=== PATIENT | male | born 2005 | race Caucasian/White ===

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

== ENCOUNTER 2024-01-09 21:23 | Emergency (ER) | payer MEDICAID, SELFPAY ==
[2024-01-09 21:26] VITALS: BP 163/91; PULSE 78; RESP 17; TEMP 36.6; O2SAT 98; BMI 41.8
--- NOTE | 2024-01-09 21:29 | XRR_ITS ---
PROCEDURE INFORMATION: Exam: XR Left Hand Exam date and time: 01/09/2024 9:50 PM Age: 18 years old Clinical indication: Left; Patient HX: Lt hand pain/swelling after punching wall TECHNIQUE: Imaging protocol: Radiologic exam of the left hand. Views: 3 or more views. COMPARISON: CR XR forearm LT 2V [id number] 09/13/2017 10:12 PM FINDINGS: Bones/joints: Mildly comminuted fracture of the 5th distal metacarpal shaft, with mild palmar and medial angulation of the distal fracture fragments. No discrete intra-articular extension. The 5th metacarpophalangeal joint appears intact. The remainder of the osseous structures appear intact. Soft tissues: Soft tissue swelling along the dorsal lateral hand. XR/XR hand LT min 3V* [id number] IMPRESSION: Mildly comminuted and angulated fracture of the distal 5th metacarpal shaft.
== END 2024-01-10 02:30 | disposition left against medical advice (07) ==
LOC: ER 21:27
PROVIDERS: Emergency Provider Family Medicine; PCP Registered Nurse
DX: Z53.21 Procedure and treatment not carried out due to patient leaving prior to being seen by health care provider (principal)
CPT/HCPCS: 73130; 99283

== ENCOUNTER 2024-10-04 09:32 | Emergency (ER) | payer MEDICAID, SELFPAY ==
--- NOTE | 2024-10-04 09:36 | XRR_ITS ---
PROCEDURE INFORMATION: Exam: XR Chest Exam date and time: 10/04/2024 9:38 AM Age: 19 years old Clinical indication: Cough and dyspnea; Additional info: Dyspnea/cough TECHNIQUE: Imaging protocol: Radiologic exam of the chest. Views: 1 view. COMPARISON: CT chest pkl w/*[id number] 01/01/2018 11:34 AM FINDINGS: Lungs: Unremarkable. No consolidation. Pleural spaces: Unremarkable. No pleural effusion. No pneumothorax. Heart/Mediastinum: Unremarkable. No cardiomegaly. Bones/joints: Unremarkable. ORIF the right clavicle. XR/XR chest 1V portable [id number] IMPRESSION: No acute findings.
[2024-10-04 09:37] VITALS: BP 153/77; PULSE 84; RESP 16; TEMP 36.9; O2SAT 96; BMI 33.4
--- NOTE | 2024-10-04 09:43 | W.ED.HA ---
HPI - Headache General: Chief Complaint: Headache Stated Complaint: Headache, n/v/f Time Seen by Provider: 10/04/24 09:35 History of Present Illness: 19-year-old male presents to the emergency room with complaint of headache.. Patient has had migraine headaches in the past this was just a bit more intense no recent trauma or injury. He is tried [id number] medications at home with no significant relief. He has had photophobia and otophobia nausea and vomiting with this he says its actually a little bit better now than it was overnight. He is not on any long-term medications to manage this. Associated symptoms: Deny chest pain, fever(s) or rash Related Data Previous Rx's ?Medication ?Instructions ?Recorded sulfamethoxazole 800 1 tab PO BID 7 days #14 tabs 07/13/23 mg-trimethoprim 160 mg tablet (Bactrim DS) promethazine 25 mg tablet 25 mg PO Q6H PRN nausea and 10/04/24 vomiting #20 tabs Allergies Allergy/AdvReac Type Severity Reaction Status Date / Time No Known Allergies Allergy Verified 01/09/24 21:29 Review of Systems Const: Denies: fever(s) or chills Card: Denies: chest pain Resp: Denies: dyspnea GI: Denies: abdominal pain : Denies: dysuria, urinary frequency or urinary urgency Musc: Denies: neck pain or back pain Skin/Breast: Denies: rash Neuro: Reports: headache(s) Physical Exam Const: GENERAL APPEARANCE: cooperative ORIENTATION/CONSCIOUSNESS: Yes awake, Yes oriented to person, Yes oriented to place and Yes oriented to time HENMT: COMMON NORMALS: normocephalic, atraumatic and hearing grossly normal bilaterally HEAD & SCALP: normocephalic and atraumatic Resp: COMMON NORMALS: normal respiratory effort, No retractions, No use of accessory muscles and clear to auscultation bilaterally AUSCULTATION: clear to auscultation bilaterally Cardio: COMMON NORMALS: regular rate, regular rhythm and No murmurs present (Cardio) RATE: regular rate RHYTHM: regular rhythm GI: COMMON NORMALS: Soft to palpation and No hepatosplenomegaly present AUSCULTATION: Yes normoactive bowel sounds PALPATION: Yes Soft to palpation, No Tenderness to palpation present (GI), No Guarding due to palpation present (GI) and Yes No hepatosplenomegaly present Extremity: COMMON NORMALS: normal to inspection, capillary refill normal, no clubbing, cyanosis or edema, no calf tenderness and no pedal edema Neuro: SENSORIUM/ORIENTATION: Yes oriented to person, Yes oriented to place and Yes oriented to time Skin: COMMON NORMALS: no rashes or lesions noted GENERAL SKIN EXAM: no rashes or lesions noted Course Vital Signs: Vital signs: Vital Signs Temperature 98.4 F 10/04/24 09:37 Pulse Rate 62 10/04/24 12:45 Respiratory Rate 16 10/04/24 09:37 Blood Pressure 124/71 10/04/24 12:45 Pulse Oximetry 96 10/04/24 12:45 Oxygen Delivery Me thod Room Air 10/04/24 11:30 MDM - Headache Medical Decision Making Improved after medications. Will discharge patient home can use promethazine as needed if has recurrent headache we will also have him use Tylenol and ibuprofen. Encouraged him to follow-up with his primary care doctor for long-term management of his migraine issues. Medical Records I reviewed the patient's medical records. Lab Data I reviewed the patient's lab results. 10/04/24 10:45 10/04/24 10:45 Radiology Impressions Chest X-Ray 10/04/24 09:36 IMPRESSION: No acute findings. Laboratory Results WBC 17.47 10^3/uL (4.5-13.0) H 10/04/24 10:45 RBC 5.78 10^6/uL (3.85-5.65) H 10/04/24 10:45 Hgb 15.80 g/dL (13.2-15.6) H 10/04/24 10:45 Hct 46.4 % (37-53) 10/04/24 10:45 MCV 80.3 fl (82-101) L 10/04/24 10:45 MCH 27.3 pg (27-33) 10/04/24 10:45 MCHC 34.1 g/dL (30-55) 10/04/24 10:45 RDW 11.9 % (12.1-15.1) L 10/04/24 10:45 Plt Count 251 10^3/cmm (157-399) 10/04/24 10:45 MPV 9.9 fL (7.4-10.4) 10/04/24 10:45 Neut % (Auto) 84.9 % 10/04/24 10:45 Lymph % (Auto) 7.6 % 10/04/24 10:45 [place] % (Auto) 6.8 % 10/04/24 10:45 Eos % (Auto) 0.1 % 10/04/24 10:45 Baso % (Auto) 0.3 % 10/04/24 10:45 Neut # (Auto) 14.85 10^3/uL (1.8-8.0) H 10/04/24 10:45 Lymph # (Auto) 1.3 10^3/uL (1.5-6.5) L 10/04/24 10:45 [place] # (Auto) 1.2 10^3/uL (0.2-0.9) H 10/04/24 10:45 Eos # (Auto) 0.0 10^3/uL (0.0-0.8) 10/04/24 10:45 Baso # (Auto) 0.1 10^3/uL (0.0-0.1) 10/04/24 10:45 Nucleated RBC % (auto) 0 % 10/04/24 10:45 Nucleated RBCs # 0.0 /100WBC 10/04/24 10:45 Sodium 136 mmol/L (136-145) 10/04/24 10:45 Potassium 4.2 mmol/L (3.5-5.1) 10/04/24 10:45 Chloride 99 mmol/L (98-107) 10/04/24 10:45 Carbon Dioxide 24 mmol/L (22-29) 10/04/24 10:45 Anion Gap 17.2 (5-19) 10/04/24 10:45 BUN 12 mg/dL (6-20) 10/04/24 10:45 Creatinine 0.9 mg/dL (0.7-1.2) 10/04/24 10:45 GFR Calculation 107.6 mL/min (90-130) 10/04/24 10:45 Glucose 102 mg/dL (65-115) 10/04/24 10:45 Calculated Osmolality 282 mOsm/kg (285-295) L 10/04/24 10:45 Calcium 9.7 mg/dL (8.5-10.5) 10/04/24 10:45 Total Bilirubin 0.5 mg/dL (0.15-1.2) 10/04/24 10:45 AST 17 U/L (0-40) 10/04/24 10:45 ALT 20 U/L (0-41) 10/04/24 10:45 Alkaline Phosphatase 170 U/L (40-130) H 10/04/24 10:45 Total Protein 7.6 g/dL (6.6-8.7) 10/04/24 10:45 Albumin 4.4 g/dL (3.5-5.2) 10/04/24 10:45 Globulin 3.2 g/dL (1.3-4.6) 10/04/24 10:45 All radiology interpretation(s) finalized by discharge Discharge Plan Discharge Patient Disposition: Home Clinical Impression: Migraine Condition: Stable Prescriptions: New promethazine 25 mg tablet 25 mg PO Q6H PRN (Reason: nausea and vomiting) Qty: 20 0RF No Action sulfamethoxazole-trimethoprim [Bactrim DS] 800-160 mg tablet 1 tab PO BID 7 Days Qty: 14 0RF Discharge Orders: Discharge ED (Routine); Ordered 10/04/24 Ordered By: Roshan Menendez Referrals: Mikaela Garcia FNP [Primary Care Provider, Nurse Practitioner] Discharge Diet: Usual diet Discharge Activity: Increase activity as tolerated Patient Instructions: Opioid Safety, Pain Management Activity Restrictions/Additional Instructions: Thank you for choosing [facility] for your healthcare needs today. It is very important that you follow up as instructed or that you return to the Emergency Department should you have concerns or if your condition changes or worsens in any way. You were seen emergency room for headache improved with medications given. Recommend you rest the remainder of today. You can use the promethazine along with Tylenol or ibuprofen if you have recurrent headaches. You should follow-up with your primary care provider regarding long-term management of your headaches. Print Language: Italian Coding Level of Care Code ED General Operator for Micheal Lazo
[2024-10-04] MEDS: prochlorperazine 10 mg/2 mL Inj IVP (10:34)
[2024-10-04] MEDS: ketorolac 30 mg/mL INJ IVP (10:36)
[2024-10-04] MEDS: diphenhydrAMINE 50 mg/mL SDV 1mL IVP (10:36)
[2024-10-04] MEDS: valproic acid inj 500 MG in sodium chloride 0.9% (plus) 50 ML 55 MG IV (10:39)
[2024-10-04 10:40] VITALS: BP 122/72; PULSE 106; O2SAT 94
[2024-10-04 10:58] LABS: Basophils # 0.1 10^3/uL (0.0-0.1); Basophils % 0.3 %; Eosinophils % 0.1 %; Hematocrit 46.4 % (37-53); Lymphocytes # 1.3 10^3/uL (1.5-6.5); Lymphocytes % 7.6 %; Mean Corpuscular HGB Conc 34.1 g/dL (30-55); Mean Corpuscular Hemoglobin 27.3 pg (27-33); Mean Corpuscular Volume 80.3 fl (82-101); Mean Platelet Volume 9.9 fL (7.4-10.4); Monocytes # 1.2 10^3/uL (0.2-0.9); Monocytes % 6.8 %; Neutrophils # 14.85 10^3/uL (1.8-8.0); Neutrophils % 84.9 %; Nucleated Red Blood Cells % 0 %; Platelet Count 251 10^3/cmm (157-399); Red Blood Count 5.78 10^6/uL (3.85-5.65); Red Cell Distribution Width 11.9 % (12.1-15.1); White Blood Count 17.47 10^3/uL (4.5-13.0)
--- NOTE | 2024-10-04 11:03 | PC.NURSE ---
PT FAMILY CAME UP TO THE NURSE'S STATION AND ASKED TO BE LET OUT. THIS NURSE WENT TO LET FAMILY OUT, WHEN SHE NOTICED THAT THE PT WAS WITH FAMILY AT THE DOOR. THIS NURSE ASKED WHAT PT WAS DOING. PT STATES HE WANTED TO LEAVE. THIS NURSE ASKED IF PT WAS UP FOR DISCHARGE AND PT STATED YES. THIS NURSE KNEW THAT PT WAS NOT UP FOR DISCHARGE AT THIS TIME AND EDUCATED PT ON THAT. PT STILL STATED HE WANTED TO LEAVE. THIS NURSE INFORMED PT AND FAMILY THAT IF HE LEFT, HE WOULD BE LEAVING AGAINST MEDICAL ADVICE. PT DECIDED TO GO BACK TO ROOM. THIS NURSE NOTICED PT HAD RIPPED IV OUT. THIS NURSE ASKED WHY PT WANTED TO LEAVE. PT STATED HIS HEADACHE WENT AWAY AND HE STARTED TO FEEL WEIRD. THIS NURSE INFORMED PT THAT HE DID NOT HAVE TO HAVE THE VALPROIC ACID IF HE DID NOT WANT. PT VERBALIZED THAT HE DID NOT WANT THE MEDS BUT WOULD STAY UNITL DISCHARGED. PHYSICIAN NOTIFIED.
[2024-10-04 11:16] LABS: Alanine Aminotransferase 20 U/L (0-41); Albumin Level 4.4 g/dL (3.5-5.2); Alkaline Phosphatase 170 U/L (40-130); Anion Gap 17.2 (5-19); Aspartate Amino Transferase 17 U/L (0-40); Blood Urea Nitrogen 12 mg/dL (6-20); Calcium 9.7 mg/dL (8.5-10.5); Carbon Dioxide 24 mmol/L (22-29); Chloride 99 mmol/L (98-107); Creatinine Clr Calc Pharmacy 149.9185; Globulin 3.2 g/dL (1.3-4.6); Glomerular Filtration Rate 107.6 mL/min (90-130); Glucose 102 mg/dL (65-115); Osmolality Calculated 282 mOsm/kg (285-295); Potassium 4.2 mmol/L (3.5-5.1); Sodium 136 mmol/L (136-145); Total Bilirubin 0.5 mg/dL (0.15-1.2); Total Protein 7.6 g/dL (6.6-8.7)
[2024-10-04 11:30] VITALS: BP 136/69; PULSE 61; O2SAT 94
[2024-10-04 12:45] VITALS: BP 124/71; PULSE 62; O2SAT 96
== END 2024-10-04 12:47 | disposition home or self-care (01) ==
PROVIDERS: Emergency Provider Family Medicine; PCP Registered Nurse
DX: G43.909 Migraine, unspecified, not intractable, without status migrainosus (principal)
CPT/HCPCS: 36415; 71045; 80053; 85025; 96365; 96375; 99285; J0780; J1200; J1885; J3490

== ENCOUNTER 2024-12-13 19:18 | Emergency (ER) | payer MEDICAID, SELFPAY ==
--- OUTSIDE RECORDS SUMMARY | 2021-04-26 06:00 | XMS_ITS | Continuity of Care Document ---
Author Organization [facility] Address [address] [place] [address] Phone Care Team Providers Care Forming Press Operator Name Role Phone Unavailable Unavailable Unavailable Medications Medication Instructions Dosage Effective Dates (start - stop) Status Comments fluoxetine 10 mg tablet - Ac tive propranolol 20 mg tablet - A ctive methocarbamol 750 mg tablet - Active naproxen 500 mg tablet - Act christofer Procedures Procedure Date INTERMEDIATE OUTPT CONSULT ECG GLOBAL ECHO, TT W/SPECTRAL AND COLOR DOPPLER De ECHO, TT W/SPECTRAL AND COLOR DOPPLER De Advance Directives Directive Yes / No Effective Date File Name Resuscitation Not Answered N/A N/A Life Support Not Answered N/A N/A Intubation Not Answered N/A N/A Antibiotics Not Answered N/A N/A IV Fluid Support Not Answered N/A N/A Tube Feed Not Answered N/A N/A Other Directive N/A N/A WARNING:The information contained in this section is historical and is provided for information only and does not constitute a legal document or any assurance that the information is still accurate. Please verify the information with the hopkins of the legal document before using it for clinical purposes. Encounters Encounter Description Practice Location Reason(s) For Visit Diagnoses Date Provider Providers Copied on Encounter INTERMEDIATE OUTPT CONSULT [facility], [address], [place], [address], [place] tel:[phone] [employer] [place] [facility] PalpitationsBe nign Essential HypertensionOb esity (morbid)BMI Pediatric, 95% and above for age No Information Referring Provider: JADEN WANG, [address] [place], [address]. tel:[phone] Family History Family Member Type Diagnosis Age At Onset No Information Payers Payer name Insurance type Covered constitution party ID Authoriza tidawit(s) [facility] [id number] Social History Type Description Quantity Date Captured Comments Alcohol Use Details Unknown Caffeine Use Details Unknown Tobacco Use Status No Information Smoking Status No Information Sex Male Vital Signs Date / Time: Height Weight BMI Pulse Rate Blood Pressure Temperature Respiratory Rate Body Surface Area Head Circumference BMI percentile Pulse Ox Inhaled Ox 12:27 PM 69.00 in 108.862 kg (240.00 lbs) 35.5 0 kg/m eter (2) 24 /min 2.30 meter(2) 99 Chief Complaint And Reason For Visit No Information History Of Present Illness Encounter Date Complaint History Of Prese nt Illness No Information Instructions Date Instruction Additional Infor mation No Information Assessments Type Assessment Date No Information
[2024-12-13 19:22] VITALS: PULSE 76; RESP 16; O2SAT 95
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
[2024-12-13 19:25] VITALS: BP 136/76
--- NOTE | 2024-12-13 19:55 | XRR_ITS ---
PROCEDURE INFORMATION: Exam: XR Abdomen Exam date and time: 12/13/2024 8:09 PM Age: 19 years old Clinical indication: Constipation TECHNIQUE: Imaging protocol: Radiologic exam of the abdomen. Views: Frontal supine view of the abdomen. 1 View. COMPARISON: CR XR chest 1V portable [id number] 10/04/2024 9:38 AM FINDINGS: Gastrointestinal tract: Nonobstructive bowel gas pattern. Moderate retained fecal debris noted throughout the entire colon with desiccated appearing feces throughout. No abnormal calcifications. Bones/joints: Unremarkable. XR/XR abdomen 1V* [id number] IMPRESSION: Exam confirms appearance of constipation. No findings of bowel obstruction
--- NOTE | 2024-12-13 20:58 | W.ED.ABDPA2 ---
HPI - Abdominal Pain General: Chief Complaint: Abdominal Pain Stated Complaint: Constipation, lax is not working Time Seen by Provider: 12/13/24 20:56 History of Present Illness: Patient is a 19-year-old male with complaints of constipation x 3 days. This has occurred before and patient was given MiraLAX, and enema which resolved the issue. He was then sent home with MiraLAX. He was lost to follow-up. He no longer has primary care physician. Associated Symptoms: Reports change in stool character and nausea; Denies chills, fever(s) and vomiting Related Data Previous Rx's ?Medication ?Instructions ?Recorded sulfamethoxazole 800 1 tab PO BID 7 days #14 tabs 07/13/23 mg-trimethoprim 160 mg tablet (Bactrim DS) promethazine 25 mg tablet 25 mg PO Q6H PRN nausea and 10/04/24 vomiting #20 tabs lactulose 20 gram oral packet 20 g PO DAILY PRN constipation #30 12/13/24 ea Allergies Allergy/AdvReac Type Severity Reaction Status Date / Time No Known Allergies Allergy Verified 01/09/24 21:29 Review of Systems General: Reports: 10 or more systems reviewed and unremarkable except in HPI and below Const: Denies: fever(s) or chills Eyes: Denies: change in vision or blurry vision ENMT: Denies: throat pain or mouth pain Card: Denies: chest pain or palpitations Resp: Denies: dyspnea or non-productive cough GI: Reports: abdominal pain, nausea, pain on defecation and change in stool character; Denies: vomiting : Denies: flank pain or difficulty urinating Musc: Denies: neck pain or back pain Skin/Breast: Denies: rash or pruritus Neuro: Denies: headache(s) or numbness in extremities Psych: Denies: anxiety or depression Physical Exam Const: COMMON NORMALS: no acute distress, average body habitus and patient oriented x3 HENMT: COMMON NORMALS: normocephalic and atraumatic HEAD & SCALP: normocephalic and atraumatic Lymph: LYMPHATIC: no lymphadenopathy noted Chest: COMMONS NORMALS: normal inspection of the chest and normal palpation of entire chest wall Resp: COMMON NORMALS: normal respiratory effort and clear to auscultation bilaterally AUSCULTATION: clear to auscultation bilaterally Cardio: COMMON NORMALS: regular rate and regular rhythm RATE: regular rate RHYTHM: regular rhythm GI: INSPECTION: Yes normal to inspection and No Fluid wave present AUSCULTATION: Yes Hypoactive bowel sounds present PALPATION: Yes Firmness to palpation present (GI), Yes Tenderness to palpation present (GI) (mild defuse) and No Guarding due to palpation present (GI) PERCUSSION: dullness to percussion and no fluid wave : COMMON NORMALS: Yes no CVA tenderness BLADDER/KIDNEY EXAM: Yes no CVA tenderness Back/Pelvis: COMMON NORMALS: no CVA tenderness Extremity: COMMON NORMALS: normal to inspection, full ROM and capillary refill normal Neuro: COMMON NORMALS: patient oriented x3 Course Vital Signs: Vital signs: Vital Signs Pulse Rate 48 L 12/13/24 22:33 Respiratory Rate 16 12/13/24 19:22 Blood Pressure 132/7 12/13/24 22:33 Pulse Oximetry 100 12/13/24 22:33 Oxygen Delivery Me thod Room Air 12/13/24 19:22 MDM - Abdominal Pain Medical Decision Making Patient is a 19-year-old male with abdominal pain and constipation, inability to have BM x 3 days. He has tried MiraLAX daily. He has bloating, and pain. X-ray is consistent with constipation. Will give lactulose x 1, and enema, and sent home with lactulose. Discussed with patient to follow-up with primary care. Case management order for referral. Lab Data Labs/Radiology: Radiology Impressions Abdomen X-Ray 12/13/24 19:55 IMPRESSION: Exam confirms appearance of constipation. No findings of bowel obstruction XR interpretation done by ED provider, pending radiology final review ED provider radiology interpretation(s): Large stool burden with nonspecific gas pattern Discharge Plan Discharge Patient Disposition: Home Clinical Impression: Constipation Qualifiers: Constipation type: slow transit constipation Qualified Code(s): K59.01 - Slow transit constipation Condition: Stable Prescriptions: New lactulose 20 gram packet 20 g PO DAILY PRN (Reason: constipation) Qty: 30 0RF No Action sulfamethoxazole-trimethoprim [Bactrim DS] 800-160 mg tablet 1 tab PO BID 7 Days Qty: 14 0RF promethazine 25 mg tablet 25 mg PO Q6H PRN (Reason: nausea and vomiting) Qty: 20 0RF Discharge Orders: Discharge ED (Routine); Ordered 12/13/24 Ordered By: Erica Bazan Referrals: Mikaela Garcia FNP [Primary Care Provider, Nurse Practitioner] Discharge Diet: Full LIquid Discharge Activity: Resume usual activity Patient Instructions: Constipation (ED), Full Liquid Diet (DC), Patient Portal & Shree Instructions Activity Restrictions/Additional Instructions: Increase noncaffeinated beverage intake. Full liquid diet until abdomen has improved. Start on a probiotic of choice [id number]. Take 2 daily. This will help with your regularity. Follow-up with your primary care physician. They may want to put you on a medication for IBS?constipation. It is important that you see your primary care physician regarding this issue since we are unable to do this out of the emergency room. Return to ED with severe pain, not passing gas, temperature greater than 100.4 ?F. Print Language: Indonesian Coding Level of Care Code ED County Treasurer for Micheal Lazo
[2024-12-13] MEDS: lactulose oral liq 20 gm/30 mL UDC PO (21:42)
[2024-12-13] MEDS: Fleet Enema 133 mL Enema PR (21:47)
[2024-12-13 22:33] VITALS: BP 132/7; PULSE 48; O2SAT 100
--- NOTE | 2024-12-13 22:34 | PC.NURSE ---
pt went to the restroom, pt states he had a good BM.
--- NOTE | 2024-12-15 07:35 | DCPLANNER ---
messaged [facility] to establish care
== END 2024-12-13 22:34 | disposition home or self-care (01) ==
PROVIDERS: Emergency Provider Physician Assistant; PCP Registered Nurse
DX: K59.01 Slow transit constipation (principal)
CPT/HCPCS: 74018; 99283; J9999